=== PATIENT | female | born 1990 | race Caucasian/White ===

== ENCOUNTER 2020-05-08 09:18 | Emergency (ER) | payer SELFPAY ==
[2015-01-08 17:21] VITALS: BP 102/63
[~2020-05-08] VITALS: Ht 160 cm; Wt 85.7 kg
--- NOTE | 2020-05-08 09:22 | PHYS DOC ---
Past History Past Medical History: No Pertinent History Past Surgical History: Cholecystectomy Alcohol Use: None Drug Use: None Adult General Chief Complaint Chief Complaint: SKIN PROBLEM HPI HPI Patient is a 30-year-old female who presents with diffuse skin rash. Onset occurred within the past 48 hours. Patient reported hiking and camping in local region 2 days prior. Reports getting back home yesterday when she reported new onset of raised, pustular, maculopapular rash of bilateral extremities that spread to her face torso and lower extremities. This rash worsened overnight w ith involvement of the face prompting her to take 50 mg p.o. Benadryl and report immediately to our ER for evaluation. Patient reports minimal pain but admits pruritus. Does not have any involvement of palms and soles. Denies any known immunodeficiency or other comorbidities. Does not have PCP in local area or take any [id number] medications. Patient has similar dermatologic issues in the past from stinging nasir and poison chaya. Review of Systems Review of Systems Fourteen body systems of review of systems have been reviewed. See HPI for pertinent positives and negative responses, other sylvester all other systems are negative, non-pertinent or non-contributory Allergies Allergies Allergies Coded Allergies Type Severity Reaction Last Updated Verified latex Allergy Severe 01/08/15 Yes Sulfa (Sulfonamide Antibiotics) Allergy Intermediate 01/08/15 Yes cephradine Allergy Intermediate 01/08/15 Yes Physical Exam Physical Exam Constitutional: Well developed, well nourished, no acute distress, non-toxic appearance. HENT: Normocephalic, atraumatic, bilateral external ears normal, oropharynx moist, no oral exudates, nose normal. No cervical lymphadenopathy Eyes: PERRLA, EOMI, conjunctiva normal, no discharge. Neck: Normal range of motion, no tenderness, supple, no stridor. Cardiovascular: Heart rate regular, sinus rhythm, no murmurs rubs or gallops Lungs & Thorax: Bilateral breath sounds clear to auscultation Abdomen: Bowel sounds normal, soft, no tenderness, no masses, no pulsatile masses. Nonsurgical abdomen, no peritoneal signs Skin: Warm, dry, diffuse macular papular slightly raised and pruritic rash that spares palms and soles. Most significant in flexor surfaces of bilateral upper extremities and around neck fold area. No airway involvement, no signs of impending airway compromise, airway erythema, airway inflammation/edema etc. numerous insect bites noted on bilateral lower extremities between the areas of her ankle and knees, no central sparing or target sign, no palpable purpura Back: No tenderness, no CVA tenderness. Extremities: No tenderness, no cyanosis, no clubbing, ROM intact, no edema. Neurologic: Alert and oriented X 3, grossly normal motor & sensory function, no focal deficits noted. Psychologic: Affect normal, judgement normal, mood normal. EKG EKG [] Radiology/Procedures Radiology/Procedures [] Course & Med Decision Making Course & Med Decision Making Airway patent, breathing unlabored, vital signs grossly unremarkable Comprehensive history and physical exam obtained, discussed likely diagnosis of self-limiting dermatitis unspecified, likely contact/allergen in origin. Less likely infectious cause in a fully vaccinated immunocompetent patient Discussed limited utility in further diagnostic work-up in ER setting, discussed potential role of skin biopsy and/or allergy testing in outpatient setting Given patient symptomology, will prescribe p.o. prednisone with instructions to follow-up with outpatient PCP in upcoming 2 to 7 days. I also advised her to re-present to ER if unable to be seen in a timely fashion by a PCP or symptoms worsen Strict return precautions discussed with good understanding by patient, all questions and concerns addressed prior to ER departure Kwaku Disclaimer Kwaku Disclaimer This electronic medical record was generated, in whole or in part, using a voice recognition dictation system. Departure Departure: Impression: Primary Impression: Dermatitis, unspecified Disposition: 01 HOME/RESIDENCE PRIOR TO ADM Condition: STABLE Referrals: PCP,NO (PCP) Patient Instructions: Contact Dermatitis Additional Instructions: You have been evaluated in the Emergency Department today for your allergic reaction/dermatitis. You pretreated with Benadryl to control your swelling. I have given you an additional written prescription for Prednisone which is a steroid which will also assist in this and help improve your rash and other symptoms Please use topical healing ointments such as Vaseline and/or Aquaphor for further symptomatic relief You have been given instructions regarding local primary care physicians. Please review and call your desired choice to set up ER follow-up and establish care in upcoming 1 to 7 days time Return to the Emergency Department if you experience difficulty breathing or swallowing, recurrent vomiting, rashes, lip/mouth/tongue swelling, persistent fevers or for any other concerning symptoms. It was a pleasure to take care of you here at [facility] and we hope you get better soon! Scripts Prednisone (PREDNISONE) 20 Mg Tablet 60 MG PO DAILY for bronchitis for 5 Days, #15 TAB Prov: ANASTACIO SERRANO DO 05/08/20 Justification of Admission: Justification of Admission: Justification of Admission Dx: N/A ANASTACIO SERRANO DO May 08, 2020 09:22
[2020-05-08] MEDS ORDERED: PRED20TA PO (09:50)
== END 2020-05-08 09:56 | disposition home or self-care (01) ==
LOC: ER 09:18
DX: L30.9 Dermatitis, unspecified (principal); Z91.040 Latex allergy status; Z88.2 Allergy status to sulfonamides; Z88.1 Allergy status to other antibiotic agents
CPT/HCPCS: 99283

== ENCOUNTER 2020-10-26 15:30 | Emergency (ER) | payer BC ==
[~2020-10-26] VITALS: Ht 160 cm; Wt 85.7 kg
[~2020-10-26 15:30] MED LIST: PRED20TA PO
[2020-10-26 15:41] VITALS: BP 125/76
[2020-10-26 16:51] LABS: BASO # 0.1 x10^3/uL (0.0-0.2); BASO % 1 % (0-3); EOS # 0.2 x10^3/uL (0.0-0.7); EOS % 2 % (0-3); HEMATOCRIT 38.7 % (36.0-47.0); HEMOGLOBIN 12.6 g/dL (12.0-15.5); LYMPH # 1.8 x10^3/uL (1.0-4.8); LYMPH % 17 % (24-48); MEAN CORPUSCULAR HEMOGLOBIN 26 pg (25-35); MEAN CORPUSCULAR HGB CONC 32 g/dL (31-37); MEAN CORPUSCULAR VOLUME 80 fL (79-100); MONO # 0.4 x10^3/uL (0.0-1.1); MONO % 4 % (0-9); NEUT # 8.1 x10^3uL (1.8-7.7); NEUT % 77 % (31-73); PLATELET COUNT 356 x10^3/uL (140-400); RED BLOOD COUNT 4.86 x10^6/uL (3.50-5.40); RED CELL DISTRIBUTION WIDTH 15.9 % (11.5-14.5); WHITE BLOOD COUNT 10.6 x10^3/uL (4.0-11.0)
[2020-10-26 16:56] LABS: BACTERIA,URINE 0 /HPF (0-FEW); BILIRUBIN,URINE NEG (NEG); CLARITY,URINE CLEAR; COLOR,URINE YELLOW; GLUCOSE,URINE NEG (NEG); NITRITE,URINE NEG (NEG); RBC,URINE OCC /HPF (0-2); SQUAMOUS EPITHELIAL CELL,UR MANY /LPF; UROBILINOGEN,URINE 0.2 mg/dL (0.2 mg/dL); WBC,URINE OCC /HPF (0-4)
[2020-10-26 16:59] LABS: CALCIUM 9.1 mg/dL (8.5-10.1); CREATININE 0.8 mg/dL (0.6-1.0); GFR 84.8; POTASSIUM 4.3 mmol/L (3.5-5.1)
[2020-10-26 17:07] LABS: ALBUMIN 4.2 g/dL (3.4-5.0); DIRECT BILIRUBIN 0.1 mg/dL (0.0-0.2); PREG TEST PT QUAL NEGATIVE (NEG); TOTAL BILIRUBIN 0.7 mg/dL (0.2-1.0); TOTAL PROTEIN 8.2 g/dL (6.4-8.2)
[2020-10-26] MEDS ORDERED: ONDA4TAB7 PO (18:08)
--- NOTE | 2020-10-26 18:08 | PHYS DOC ---
Past History Past Medical History: No Pertinent History Past Surgical History: No Surgical History Alcohol Use: None Drug Use: None General Adult EDM: Chief Complaint: flu like symptoms HPI: HPI: This is a pleasant 30-year-old female who presents emergency department with flulike symptoms. She has had headache with generalized myalgias with nausea and vomiting. This is been going on for about 2 days. She has had a hard time keeping water down. She has not had a temperature and she has been checking her temperature daily. She has not had any known exposure to COVID-19 that she is aware of. She denies nuchal rigidity or neck pain but has generalized myalgias in the body. She denies being . Location generalized. Duration constant. Associated with nausea and vomiting. Review of systems negative for chest pain shortness of breath. Positive for mild cough. Positive for nausea with vomiting. She denies abdominal pain. She denies vaginal bleeding. She denies being . All other review of systems negative. ED course: 30-year-old female presenting with flulike symptoms. On arrival the patient had a heart rate within normal limits. Respiratory rate within normal limits. Blood pressure within normal limits. Satting well on room air. Patient temperature was initially 97 F orally. Currently is extremely cold ou tside so this temperature may not be accurate. White blood cell count within normal limits. Chemistry panel unremarkable. Negative for . Urine analysis not suggestive of infection. Covid swab obtained. We will have the patient quarantine until the patient's Covid swab comes back. In the interim we will give the patient oral Zofran for her nausea. She is to return if she has intractable nausea or vomiting. She is to return if she develops neck pain or nuchal rigidity. She is to return if her headache worsens or severe. The patient was then discharged home in stable condition to follow up with their primary care physician over the next 1-2 days. They were to return if their symptoms worsened or if they were concerned for any reason. They were also instructed to return to the emergency department if they were unable to get the recommended and appropriate follow-up. [id number] discharge instructions and return precautions were given. Patient's questions were answered to their satisfaction. Patient is comfortable with plan. Review of Systems: Review of Systems: Constitutional: Denies fever or chills Eyes: Denies change in visual acuity HENT: Denies nasal congestion or sore throat Respiratory: Denies cough or shortness of breath Cardiovascular: Denies chest pain or edema GI: Denies abdominal pain, nausea, vomiting, bloody stools or diarrhea : Denies dysuria Musculoskeletal: Denies back pain or joint pain Integument: Denies rash Neurologic: Denies headache, focal weakness or sensory changes Endocrine: Denies polyuria or polydipsia Lymphatic: Denies swollen glands Psychiatric: Denies depression or anxiety Allergies: Allergies: Allergies Coded Allergies Type Severity Reaction Last Updated Verified latex Allergy Severe 01/08/15 Yes Sulfa (Sulfonamide Antibiotics) Allergy Intermediate 01/08/15 Yes cephradine Allergy Intermediate 01/08/15 Yes Physical Exam: PE: Constitutional: Well developed, well nourished, no acute distress, non-toxic appearance. [] HENT: Normocephalic, atraumatic, bilateral external ears normal, oropharynx moist, no oral exudates, nose normal. [] Eyes: PERRLA, EOMI, conjunctiva normal, no discharge. [] Neck: Normal range of motion, no tenderness, supple, no stridor. [] Cardiovascular:Heart rate regular rhythm, no murmur [] Lungs & Thorax: Bilateral breath sounds clear to auscultation [] Abdomen: Bowel sounds normal, soft, no tenderness, no masses, no pulsatile masses. [] Skin: Warm, dry, no erythema, no rash. [] Back: No tenderness, no CVA tenderness. [] Extremities: No tenderness, no cyanosis, no clubbing, ROM intact, no edema. [] Neurologic: Alert and oriented X 3, normal motor function, normal sensory function, no focal deficits noted. [] Psychologic: Affect normal, judgement normal, mood normal. [] Current Patient Data: Labs: Laboratory Tests Test 10/26/20 16:25 10/26/20 16:33 10/26/20 16:42 White Blood Count 10.6 x10^3/uL (4.0-11.0) Red Blood Count 4.86 x10^6/uL (3.50-5.40) Hemoglobin 12.6 g/dL (12.0-15.5) Hematocrit 38.7 % (36.0-47.0) Mean Corpuscular Volume 80 fL (79-100) Mean Corpuscular Hemoglobin 26 pg (25-35) Mean Corpuscular Hemoglobin Concent 32 g/dL (31-37) Red Cell Distribution Width 15.9 % (11.5-14.5) H Platelet Count 356 x10^3/uL (140-400) Neutrophils (%) (Auto) 77 % (31-73) H Lymphocytes (%) (Auto) 17 % (24-48) L Monocytes (%) (Auto) 4 % (0-9) Eosinophils (%) (Auto) 2 % (0-3) Basophils (%) (Auto) 1 % (0-3) Neutrophils # (Auto) 8.1 x10^3uL (1.8-7.7) H Lymphocytes # (Auto) 1.8 x10^3/uL (1.0-4.8) Monocytes # (Auto) 0.4 x10^3/uL (0.0-1.1) Eosinophils # (Auto) 0.2 x10^3/uL (0.0-0.7) Basophils # (Auto) 0.1 x10^3/uL (0.0-0.2) Sodium Level 138 mmol/L (136-145) Potassium Level 4.3 mmol/L (3.5-5.1) Chloride Level 101 mmol/L (98-107) Carbon Dioxide Level 28 mmol/L (21-32) Anion Gap 9 (6-14) Blood Urea Nitrogen 12 mg/dL (7-20) Creatinine 0.8 mg/dL (0.6-1.0) Estimated GFR (Cockcroft-Gault) 84.8 Glucose Level 87 mg/dL (70-99) Calcium Level 9.1 mg/dL (8.5-10.1) Total Bilirubin 0.7 mg/dL (0.2-1.0) Direct Bilirubin 0.1 mg/dL (0.0-0.2) Aspartate Amino Transferase (AST) 34 U/L (15-37) Alanine Aminotransferase (ALT) 43 U/L (14-59) Alkaline Phosphatase 72 U/L (46-116) Total Protein 8.2 g/dL (6.4-8.2) Albumin 4.2 g/dL (3.4-5.0) Lipase 112 U/L (73-393) Serum Test, Qualitative Negative (NEG) Urine Collection Type Unknown Urine Color Yellow Urine Clarity Clear Urine pH 7.0 Urine Specific [place] 1.015 Urine Protein Neg (NEG-TRACE) Urine Glucose (UA) Neg mg/dL (NEG) Urine Ketones (Stick) Trace mg/dL (NEG) Urine Blood Neg (NEG) Urine Nitrite Neg (NEG) Urine Bilirubin Neg (NEG) Urine Urobilinogen Dipstick 0.2 mg/dL (0.2 mg/dL) Urine Leukocyte Esterase Neg (NEG) Urine RBC Occ /HPF (0-2) Urine WBC Occ /HPF (0-4) Urine Squamous Epithelial Cells Many /LPF Urine Bacteria 0 /HPF (0-FEW) POC Urine HCG, Qualitative hcg negative (Negative) Vital Signs: Vital Signs Date Time Temp Pulse Resp B/P (MAP) Pulse Ox O2 Delivery O2 Flow Rate FiO2 10/26/20 15:41 97.0 61 16 125/76 (92) 100 Room Air EKG: EKG: [] Radiology/Procedures: Radiology/Procedures: [] Heart Score: Risk Factors: Risk Factors: DM, Current or recent (<one month) smoker, HTN, HLP, family history of CAD, obesity. Risk Scores: Score 0 - 3: 2.5% MACE over next 6 weeks - Discharge Home Score 4 - 6: 20.3% MACE over next 6 weeks - Admit for Clinical Observation Score 7 - 10: 72.7% MACE over next 6 weeks - Early Invasive Strategies Course & Med Decision Making: Course & Med Decision Making Pertinent Labs and Imaging studies reviewed. (See chart for details) [] Dragon Disclaimer: Dragon Disclaimer: This electronic medical record was generated, in whole or in part, using a voice recognition dictation system. Departure Departure: Impression: Primary Impression: Flu-like symptoms Disposition: 01 DC HOME SELF CARE/HOMELESS Condition: STABLE Referrals: PCP,NO (PCP) Patient Instructions: Nausea and Vomiting, [id number] Additional Instructions: You have been tested for or diagnosed with COVID-19. It is an infection caused by a new type of coronavirus. COVID-19 will cause cold-like or mild flu symptoms in most. It can cause more severe symptoms like problems breathing in some. There is no treatment for COVID-19. The body will clear the infection over time. Self-care will help to ease discomfort. Steps to Take: Self-Care Rest as needed. Healthy habits may help you feel better. Steps include: Choose healthy foods including fruits and vegetables. Drink water throughout the day. Get plenty of sleep each night. If you smoke, try to quit. It may ease breathing. Avoid alcohol. Keep Others Healthy The virus can spread to others. Droplets are released every time you sneeze or cough. The droplets can get into the mouth, nose, or eyes of people near you and lead to infection. To lower the chances of spreading COVID-19 to others: Stay at home until your doctor has said it is safe to leave. If you tested pos itive this will mean staying isolated until both of the following are true: At least 7 days have passed since the start of illness. You are free of fever for at least 72 hours without the use of medicine. During this time: - Avoid public areas, events, or transportation. Do not return to work or school until your doctor has said it is safe to do so. - Call ahead if you need to go to a medical center. Let them know you may have COVID-19. It will help them guide you where to go. They may also ask you to wear a facemask when you come to the office. - If you call for emergency medical services, let them know you may have COVID- 19. While at home: - Try to avoid close contact with others. Stay about 6 feet away. - If possible, spend most of your time in a separate room from others. - Use a face mask if you will be in close contact with others such as sharing a room or vehicle. - Have someone wipe down common surfaces in the home. Use household ditch inspector every day on areas like doorknobs, counters, or sinks. - Cough or sneeze into a tissue. Throw the tissue away right after use. If a tissue is not available, cough or sneeze into your elbow. - Wash your hands often. Wash them after sneezing or coughing. Use soap and water and wash for at least 20 seconds. Alcohol based hand airplane cleaner can be used if soap and water is not available. - Do not prepare food for others. Avoid sharing personal items like forks, spoons, or toothbrushes. - Avoid close contact with pets while you are sick. There is no evidence of the virus passing to pets. This is a safety step until more is known about this virus. Isolation can be frustrating. Social interaction can help. Keep in touch with friends and family through phone and tech options. You can still interact with others in your home, just keep a safe distance of about 6 feet. Follow-up: Your doctors office will check in with you to see if there are any changes in your health. You may be asked to keep track of symptoms to share with them. They will also let you know when you are clear to be in public again. Problems to Look Out For: Contact your doctor if your recovery is not going as you expect. Get emergency care if you have problems such as: - Trouble breathing - Nonstop chest pain or pressure - Changes in awareness, confusion, or problems waking - Lips or face have bluish color - Worsening of symptoms If you think you have an emergency, call for emergency medical services right away. As taken from [employer] [facility] Script[facility] Ondansetron Hcl (ZOFRAN) 4 Mg Tablet 1 TAB PO PRN Q6HRS PRN for NAUSEA, #6 TAB Prov: CHENTE MARTÍNEZ MD 10/26/20 CHENTE MARTÍNEZ MD Oct 26, 2020 18:08
== END 2020-10-26 18:18 | disposition home or self-care (01) ==
LOC: ER 15:30
DX: R11.2 Nausea with vomiting, unspecified (principal); R51.9 Headache, unspecified; M79.10 Myalgia, unspecified site; Z88.2 Allergy status to sulfonamides; Z91.040 Latex allergy status; Z88.8 Allergy status to other drugs, medicaments and biological substances
CPT/HCPCS: 36415; 80048; 80076; 81001; 81025; 83690; 84703; 85025; 99283; C9803; U0003